=== PATIENT | female | born 2000 | race Two or more races ===

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

== ENCOUNTER 2020-02-02 12:42 | Emergency (ER) | payer MEDICAID ==
[2020-02-02 13:13] VITALS: BP 146/66
--- NOTE | 2020-02-02 14:35 | ER Document Report ---
ED General - General Chief Complaint: Insect Bite Stated Complaint: INSECT BITE Notes: Patient is a 19-year-old female with no significant past medical history presents the emergency department chief complaint of redness and swelling to the left lateral chest wall that began about 2 or 3 days ago. States she is unsure if it is from a spider bite. States area is red swollen and tender. Denies any drainage. No fevers chills or night sweats. TRAVEL OUTSIDE OF THE [place] IN LAST 30 DAYS: No - Related Data Allergies/Adverse Reactions: No Known Allergies Allergy (Verified 02/02/20 14:18) Past Medical History - Social History Smoking Status: Never Smoker Chew tobacco use (# tins/day): No Frequency of alcohol use: None Drug Abuse: None Family History: Reviewed & Not Pertinent Renal/ Medical History: Denies: Hx Peritoneal Dialysis - Immunizations Immunizations up to date: Yes Hx Diphtheria, Pertussis, Tetanus Vaccination: Yes Review of Systems - Review of Systems Constitutional: denies: Fever EENT: denies: Difficulty swallowing Cardiovascular: denies: Chest pain Respiratory: denies: Short of breath Gastrointestinal: denies: Abdominal pain Genitourinary: denies: Pain Female Genitourinary: denies: Vaginal discharge Musculoskeletal: denies: Joint pain Skin: Change in color Hematologic/Lymphatic: denies: Easy bleeding Neurological/Psychological: denies: Headaches Physical Exam - Vital signs Vitals: Temp Pulse Resp BP Pulse Ox 99.2 F 96 H 16 146/66 H 100 02/02/20 13:11 02/02/20 13:11 02/02/20 13:11 02/02/20 13:11 02/02/20 13:11 - General General appearance: Appears well, Alert In distress: None - Respiratory Respiratory status: No respiratory distress Chest status: Nontender Breath sounds: Normal Chest palpation: Normal - Cardiovascular Rhythm: Regular Heart sounds: Normal auscultation - Neurological Neuro grossly intact: Yes Cognition: Normal Orientation: AAOx4 - Psychological Associated symptoms: Normal affect, Normal mood - Skin Skin Color: Other - Erythematous area with induration to the left lateral chest wall approximately in the mid axillary line. There is centralized focalization with scabbing. No fluctuance appreciated. No expanding cellulitis or proximal streaking. Course - Re-evaluation Re-evalutation: 02/02/20 14:34 History and physical consistent with a cellulitis. Patient be placed on Bactrim. She denies any chance of . Discussed with her the importance of outpatient follow-up in 24 to 48 hours for reevaluation. Advised to return here any ER immediately with any new, persistent or worsening symptoms. She verbalized understood and agreed. - Vital Signs Vital signs: Temp Pulse Resp BP Pulse Ox 99.2 F 96 H 16 146/66 H 100 02/02/20 13:11 02/02/20 13:11 02/02/20 13:11 02/02/20 13:11 02/02/20 13:11 Discharge - Discharge Clinical Impression: Cellulitis Qualifiers: Site of cellulitis: other site Qualified Code(s): L03.818 - Cellulitis of other sites Condition: Stable Disposition: HOME, SELF-CARE Instructions: Cellulitis ([facility]) Additional Instructions: Follow-up with your regular doctor in 2 to 3 days for reevaluation. Return here or any ER immediately with any new, persistent or worsening symptoms. Prescriptions: Sulfamethoxazole/Trimethoprim [Bactrim Ds Tablet] 1 each PO BID #20 tablet
== END 2020-02-02 14:35 | disposition home or self-care (01) ==
LOC: ER 12:42
DX: L03.313 Cellulitis of chest wall (principal); R22.2 Localized swelling, mass and lump, trunk
CPT/HCPCS: 99281

== ENCOUNTER 2020-02-03 22:20 | Emergency (ER) | payer MEDICAID ==
[2020-02-03] MEDS ORDERED: OXYCODONE-ACETAMINOPHEN 5-325 MG TABLET PO ONE (22:36)
--- NOTE | 2020-02-03 22:37 | ER Document Report ---
ED Medical Screen (RME) - General Chief Complaint: Insect Bite Stated Complaint: POSSIBLE SPIDER BITE/NAUSEA Time Seen by Provider: 02/03/20 22:32 Mode of Arrival: Ambulatory Information source: Patient Notes: 19-year-old female presents to ED for complaint of a large abscess to the left lateral chest. She states she noticed it about 2 days ago. She states she does not know what she did she might of had an insect bite that she scratched she is not sure. She denies any allergies. It is extremely painful and it is painful to take a deep breath. I have medicated her with Percocet in the triage area. She said her last menstrual period was 24 January. I have greeted and performed a rapid initial assessment of this patient. A comprehensive ED assessment and evaluation of the patient, analysis of test results and completion of medical decision making process will be conducted by an additional ED providers. TRAVEL OUTSIDE OF THE [place] IN LAST 30 DAYS: No - Related Data Allergies/Adverse Reactions: No Known Allergies Allergy (Verified 02/02/20 14:18) Past Medical History Renal/ Medical History: Denies: Hx Peritoneal Dialysis - Immunizations Immunizations up to date: Yes Hx Diphtheria, Pertussis, Tetanus Vaccination: Yes Physical Exam - Vital signs Vitals: Temp Pulse Resp BP Pulse Ox 98.8 F 107 H 14 154/81 H 99 02/03/20 22:25 02/03/20 22:25 02/03/20 22:25 02/03/20 22:25 02/03/20 22:25 Course - Vital Signs Vital signs: Temp Pulse Resp BP Pulse Ox 98.8 F 107 H 14 154/81 H 99 02/03/20 22:25 02/03/20 22:25 02/03/20 22:25 02/03/20 22:25 02/03/20 22:25
[2020-02-04] MEDS ORDERED: LIDOCAINE 1%/EPINEPHRINE INJ 20 ML VIAL INJ ONE (01:13)
[2020-02-04 01:41] VITALS: BP 122/65
[2020-02-04] MEDS ORDERED: CEPHALEXIN 500 MG CAPSULE PO ONE (02:54)
[2020-02-04] MEDS ORDERED: SULFAMETHOXAZOLE/TRIMETHOPRIM 800-160 MG TABLET PO ONE (02:54)
--- NOTE | 2020-02-04 02:56 | ER Document Report ---
ED General - General Chief Complaint: Abscess Stated Complaint: POSSIBLE SPIDER BITE/NAUSEA Time Seen by Provider: 02/03/20 22:32 Mode of Arrival: Ambulatory TRAVEL OUTSIDE OF THE [place] IN LAST 30 DAYS: No - HPI Notes: 89-year-old female with no significant past medical history presents with area of redness and swelling on her left back gradually worsening over the past few days without associated symptoms, prior episodes, or any known precipitating factor. Patient denies any symptoms anywhere else on her body, HIV, diabetes, immunocompromise, prior abscesses, fever, vomiting, trauma - Related Data Allergies/Adverse Reactions: No Known Allergies Allergy (Verified 02/02/20 14:18) Past Medical History - General Information source: Patient - Social History Smoking Status: Never Smoker Family History: Reviewed & Not Pertinent Patient has homicidal ideation: No Renal/ Medical History: Denies: Hx Peritoneal Dialysis - Immunizations Immunizations up to date: Yes Hx Diphtheria, Pertussis, Tetanus Vaccination: Yes Review of Systems - Review of Systems Notes: REVIEW OF SYSTEMS: CONSTITUTIONAL : Denies fever, chills, or sweats. EENT: Denies recent cold/sinus symptoms, denies throat pain CARDIOVASCULAR: Denies chest pain, AWILDA RESPIRATORY: Denies cough, denies shortness of breath. GASTROINTESTINAL: Denies abdominal pain, nausea/vomiting. GENITOURINARY: Denies difficulty urinating, painful urination. FEMALE GENITOURINARY: Denies abnormal vaginal bleeding, vaginal discharge. MUSCULOSKELETAL: Denies neck pain, back pain. SKIN: + rash or skin lesions. HEMATOLOGIC : Denies easy bruising or bleeding. LYMPHATIC: Denies swollen, enlarged glands. NEUROLOGICAL: Denies headache, denies change in gait. PSYCHIATRIC: Denies anxiety or stress or depression. Physical Exam - Vital signs Vitals: Temp Pulse Resp BP Pulse Ox 98.8 F 107 H 14 154/81 H 99 02/03/20 22:25 02/03/20 22:25 02/03/20 22:25 02/03/20 22:25 02/03/20 22:25 - Notes Notes: PHYSICAL EXAMINATION: GENERAL: Well-appearing, well-nourished, young healthy-appearing adult female sitting up in stretcher with no visible signs of discomfort HEAD: Atraumatic, normocephalic. EYES: Pupils equal round and appropriate constriction, sclera anicteric, conjunctiva are normal. ENT: nares patent, moist mucous membranes. NECK: Normal range of motion, supple without lymphadenopathy LUNGS: Normal respiratory rate and effort, speaking in full sentences HEART: Regular rate, no JVD, no lower extremity edema ABDOMEN: Soft, nontender, no guarding, no masses, no CVAT EXTREMITIES: Normal range of motion, no pitting or edema. No cyanosis. NEUROLOGICAL: Awake, alert, conversing appropriately, moves all extremities spontaneously. PSYCH: Normal mood, normal affect. SKIN: Warm, Dry, normal turgor, approximately 5 x 8 cm area of redness induration and abnormal warmth on lateral upper left back with central area of fluctuance approximately 2 cm x 2 cm Course - Re-evaluation Re-evalutation: 02/04/20 02:57 Presentation consistent with abscess with surrounding cellulitis, patient has no systemic symptoms, initially mildly tachycardic likely secondary to exertion just prior to triage vitals being taken, resolved without any intervention at the time of my examination. Patient thought it might have been a spider bite but no evidence to suggest such and patient did not observe any spider. patient has no prior antibiotic use history no immunocompromise history and no risk factors for complicated course. Patient was I&D at bedside without complication which he tolerated well and given first dose of antibiotics with community- acquired MRSA coverage in ED. Patient given extensive return to ED precautions which she demonstrated understanding of. Patient ready for DC with PCP follow- up outpatient. - Vital Signs Vital signs: Temp Pulse Resp BP Pulse Ox 98.3 F 83 16 122/65 98 02/04/20 01:38 02/04/20 01:38 02/04/20 01:38 02/04/20 01:38 02/04/20 01:38 Procedures - Incision and Drainage Left Lateral Back Time completed: 02:50 - 02/04/2020 Type: Complex Anesthetic type: 1% Lidocaine w/epi mL's of anesthetic: 8 Blade size: 11 I&D procedure: Chlorprep applied Incision Method: Incision made by scalpel Amount/type of drainage: 10 ml Notes: 02/04/20 02:50 blunt dissection with breakup of loculations performed Adult Front & Back picture: 1 - abscess with cellulitis Discharge - Discharge Clinical Impression: Abscess Cellulitis Qualifiers: Site of cellulitis: trunk Site of cellulitis of trunk: back Qualified Code(s): L03.312 - Cellulitis of back [any part except buttock] Condition: Good Disposition: HOME, SELF-CARE Instructions: Cephalexin ([facility]), Trimethoprim-Sulfa ([facility]) Additional Instructions: Abscess You have an abscess (boil). This a pus-forming infection, usually due to staph. Some boils may be left to drain on their own, but most require lancing. From the time the tender lump first appears, it may be three or four days before the abscess is ready to jorge. Local heat and rest help at this stage of treatment. An antibiotic may prevent spread of the infection. The wound will heal with surprisingly little scar. Depending on the size and location of an abscess, healing can take one to four weeks. You may shower and wash the area around the incision site two or three times a day. If you develop fever, chilling, worsening pain, or increasing swelling in the area, call the doctor or return immediately. Cellulitis You have an infection of your skin and underlying soft tissues called cellulitis. This is due to bacteria, which can enter through any break in the skin, or even through an irritated hair follicle. Untreated, cellulitis will usually worsen. Antibiotics are required. Usually, warm packs or warm soaks, and elevation of the infected area are recommended. You should start getting better within 24 to 36 hours. Most infections respond quickly to the right medication. Follow-up care is important, however, to check for abscess (boil) formation, unsuspected foreign body, or resistant infection. If you develop fever, chills, or if the area of infection is becoming rapidly more swollen or painful, call the doctor at once. Follow-up with your primary doctor within 1 week. Return to the ED immediately if you have any worsening symptoms, fever of 100.4 or higher, vomiting, or any other worsening or alarming symptoms. Prescriptions: Sulfamethoxazole/Trimethoprim [Bactrim Ds Tablet] 1 each PO BID 5 Days #10 tablet Cephalexin Monohydrate [Keflex 500 mg Capsule] 500 mg PO Q6H 5 Days #20 capsule
== END 2020-02-04 03:45 | disposition home or self-care (01) ==
LOC: ER 22:20
PROC: 0H96XZZ Drainage of Back Skin, External Approach (ICD-10-PCS; principal; 2020-02-03)
DX: L02.212 Cutaneous abscess of back [any part, except buttock and flank] (principal); R21 Rash and other nonspecific skin eruption
CPT/HCPCS: 99283; 81025; 10060; J3490 ×2

== ENCOUNTER 2020-03-03 23:07 | Emergency (ER) | payer MEDICAID ==
[2020-03-04] MEDS ORDERED: KETOROLAC TROMETHAMINE INJ/PF 30 MG/1 ML SDV IV ONE (02:01)
[2020-03-04] MEDS ORDERED: ONDANSETRON HCL INJ/PF 4 MG/2 ML SDV IV ONE (02:01)
[2020-03-04] MEDS ORDERED: NORMAL SALINE 1000 ML 1,000 ML IV ONE (02:01)
--- NOTE | 2020-03-04 02:17 | ER Document Report ---
ED General - General Chief Complaint: Nausea/Vomiting Stated Complaint: HEADACHE/NAUSEA/UPSET STOMACH Time Seen by Provider: 03/04/20 01:33 TRAVEL OUTSIDE OF THE [place] IN LAST 30 DAYS: No - HPI Context: 19-year-old female presents with chief complaint of headache, nausea, crampy, diarrhea x 1 day. Pt states she ate [employer] pizza last night and started having symptoms shortly afterwards. Patient states she is also having nonlocalized, crampy abdominal pain. Patient states she thinks eating [employer] pizza is the reason she had the onset of symptoms. Patient took some Motrin at home without relief of symptoms. Patient denies fever, chills, shortness of breath, chest pain, dyspnea, loss of sense of taste or loss of sense of smell. Patient denies recent sick contacts. Patient denies possible contacts with patients under suspicion or positive for COVID. Patient states her last menstrual period was a little over 2 weeks ago and denies . Associated symptoms: Nausea Exacerbated by: Other - See HPI Relieved by: Other - Nothing Recently seen / treated by doctor: No - Related Data Allergies/Adverse Reactions: No Known Allergies Allergy (Verified 02/02/20 14:18) Past Medical History - General Information source: Patient - Social History Smoking Status: Never Smoker Chew tobacco use (# tins/day): No Frequency of alcohol use: None Drug Abuse: None Family History: Reviewed & Not Pertinent Renal/ Medical History: Denies: Hx Peritoneal Dialysis - Immunizations Immunizations up to date: Yes Hx Diphtheria, Pertussis, Tetanus Vaccination: Yes Review of Systems - Review of Systems Constitutional: No symptoms reported EENT: No symptoms reported Cardiovascular: No symptoms reported Respiratory: No symptoms reported Gastrointestinal: Abdominal pain, Diarrhea, Nausea. denies: Vomiting Genitourinary: No symptoms reported Female Genitourinary: No symptoms reported Musculoskeletal: No symptoms reported Skin: No symptoms reported Hematologic/Lymphatic: No symptoms reported Neurological/Psychological: Other - Headache -: Yes All other systems reviewed and negative Physical Exam - Vital signs Vitals: Temp Pulse Resp BP Pulse Ox 98.5 F 80 18 136/77 H 100 03/03/20 23:15 03/03/20 23:15 03/03/20 23:15 03/03/20 23:15 03/03/20 23:15 - Notes Notes: CONSTITUTIONAL [Vital signs reviewed, Patient appears comfortable, Alert and oriented X 3, Normal stature.] HEAD [Atraumatic, Normocephalic.] EYES [Eyes are normal to inspection, No discharge from eyes, Extraocular muscles intact, Sclera are normal, Conjunctiva are normal.] NECK [Normal ROM, No jugular venous distention, No meningeal signs, no carotid bruit.] RESPIRATORY CHEST [Chest is nontender, Breath sounds normal, No respiratory distress.] CARDIOVASCULAR [RRR, No murmurs, Normal S1 S2, No rub, No gallop.] ABDOMEN [Abdomen is nontender, No pulsatile masses, No other masses, Bowel sounds normal, No distension, No peritoneal signs, No hernias.] BACK [There is no CVA Tenderness, There is no tenderness to palpation, Normal inspection.] UPPER EXTREMITY [Inspection normal, No cyanosis, No clubbing, No edema, 2+ radial pulses.] LOWER EXTREMITY [Inspection normal, No cyanosis, No clubbing, No edema, No calf tenderness, 2+ femoral pulses.] NEURO [No focal motor deficits, No focal sensory deficits, Speech normal.] SKIN [Skin is warm, Skin is dry, Skin is normal color.] LYMPHATIC [No adenopathy in neck.] PSYCHIATRIC [Normal affect. ] Course - Re-evaluation Re-evalutation: 03/04/20 03:48 Patient states she is feeling better at this time. Results of ED MSE discussed with patient. All questions were answered prior to discharge. Emergency signs and symptoms, reasons to return to the emergency department discussed with hermelindo saeed. - Vital Signs Vital signs: Temp Pulse Resp BP Pulse Ox 98.5 F 80 18 136/77 H 100 03/03/20 23:15 03/03/20 23:15 03/03/20 23:15 03/03/20 23:15 03/03/20 23:15 - Laboratory Result Diagrams: 03/04/20 02:31 03/04/20 02:31 Laboratory results interpreted by me: 03/04/20 02:31 RDW 14.6 H Discharge - Discharge Clinical Impression: Acute gastroenteritis Condition: Stable Disposition: HOME, SELF-CARE Instructions: Antinausea Medication ([facility]), Gastroenteritis (adult) ([facility]) Additional Instructions: Return to the Emergency Department without delay if any worse. HOME CARE INSTRUCTIONS & INFORMATION: Thank you for choosing us for your medical needs. We hope you're satisfied with the care you received. After you leave, you must properly care for your problem and, at the same time, observe its progress. Any condition can change. Some illnesses can change rapidly over hours or days. If your condition worsens, return to the Emergency Department or see your physician promptly. ABOUT YOUR X-RAYS AND EKG'S: If you had an EKG or X-rays taken, they have been read by the Emergency Physician. The X-rays and EKG's will also be read by a Radiologist or Emergency Medicine within 24 hours. If discrepancies are noted, you will be notified by telephone. Please be certain the ED has a correct telephone number & address where you can be reached. Also, realize that some fractures or abnormalities do not show up on initial X-rays. If your symptoms continue, see your physician. ABOUT YOUR LABORATORY TEST: If you had laboratory tests, the results have been reviewed by the Emergency Physician. Some test results (for example cultures) may not be available for several days. You will be contacted if any test result shows you need additional treatment. Please be certain the ED has a correct telephone number and address where you can be reached. ABOUT YOUR MEDICATIONS: You will receive instructions on how to take your medicine on the prescription label you receive. Additional information may be provided by the Pharmacy. If you have questions afterwards, call the ED for clarification or further instructions. Some prescribed medications may cause drowsiness. Do not perform tasks such as driving a car or operating machinery without consulting your Pharmacist. If you feel you need a refill of pain medication, your condition will need re-evaluation. Please do not call for a refill of any medication. ABOUT YOUR SIGNATURE: Signature of this document acknowledges to followin. Understanding that you received emergency treatment and that you may be re leased before al medical problems are known or treated. Please be certain the ED has a correct phone number & address where you can be reached. 2. Acknowledgement that you will arrange for follow-up care as recommended. 3. Authorization for the Emergency Physician to provide information to your follow-up Physician in order to maximize your care. AT ANY TIME, IF YOUR SYMPTOMS CHANGE SIGNIFICANTLY OR WORSEN OR YOU DEVELOP NEW SYMPTOMS, RETURN TO THE EMERGENCY DEPARTMENT IMMEDIATELY FOR RE-EVALUATION. OUR GOAL IS TO PROVIDE EXCELLENT MEDICAL CARE! WE HOPE THAT WE HAVE MET YOUR EXPECTATIONS DURING YOUR EMERGENCY DEPARTMENT VISIT AND THAT YOU FEEL YOU HAVE RECEIVED EXCELLENT CARE! Referrals: FAYE HURST MD [HONORARY] - Follow up as needed
[2020-03-04 03:22] LABS: ABSOLUTE EOSINOPHILS # (AUTO) 0.1 10^3/uL (0.0-0.6); BASOPHILS % (AUTO) 0.4 % (0-2); EOSINOPHILS % (AUTO) 1.2 % (0-6); LYMPHOCYTES % (AUTO) 31.3 % (13-45); RED BLOOD COUNT 4.13 10^6/uL (3.72-5.28); TOTAL CELLS COUNTED % (AUTO) 100 %
[2020-03-04 03:26] LABS: ABSOLUTE LYMPHOCYTES (AUTO) 1.9 10^3/uL (0.5-4.7); ABSOLUTE MONOCYTES (AUTO) 0.5 10^3/uL (0.1-1.4); ABSOLUTE NEUT (AUTO) 3.6 10^3/uL (1.7-8.2); HEMATOCRIT 36.9 % (36.0-47.0); HEMOGLOBIN 12.2 g/dL (12.0-15.5); MEAN CORPUSCULAR HEMOGLOBIN 29.5 pg (27.0-33.4); MEAN CORPUSCULAR HGB CONC 32.9 g/dL (32.0-36.0); MEAN CORPUSCULAR VOLUME 90 fl (80-97); MONOCYTES % (AUTO) 8.8 % (3-13); PLATELET COUNT 271 10^3/uL (150-450); RED CELL DISTRIBUTION WIDTH 14.6 % (11.5-14.0); SEGMENTED NEUTROPHILS % (AUTO) 58.3 % (42-78); WHITE BLOOD COUNT 6.1 10^3/uL (4.0-10.5)
[2020-03-04 03:28] LABS: ALBUMIN 4.3 g/dL (3.7-5.6); ALKALINE PHOSPHATASE 70 U/L (50-135); ANION GAP 10 (5-19); ASPARTATE AMINO TRANSFERASE 25 U/L (5-30); BILIRUBIN,DIRECT 0.4 mg/dL (0.0-0.4); BILIRUBIN,TOTAL 0.7 mg/dL (0.2-1.3); BLOOD UREA NITROGEN 15 mg/dL (7-20); CALCIUM 9.3 mg/dL (8.4-10.2); CARBON DIOXIDE 26 mmol/L (22-30); CHLORIDE 105 mmol/L (98-107); GLUCOSE 93 mg/dL (75-110); POTASSIUM 4.5 mmol/L (3.6-5.0); TOTAL PROTEIN 7.3 g/dL (6.3-8.2)
[2020-03-04] MEDS ORDERED: ONDANSETRON ODT 4 MG TAB (6 TAB/ER DISP) PO PRN (03:50)
[2020-03-04 04:07] VITALS: BP 136/68
== END 2020-03-04 04:06 | disposition home or self-care (01) ==
LOC: ER 23:07
DX: K52.89 Other specified noninfective gastroenteritis and colitis (principal); R11.2 Nausea with vomiting, unspecified; R10.9 Unspecified abdominal pain; R19.7 Diarrhea, unspecified
CPT/HCPCS: 99284; 96361; 96374; 96375; 36415; 84703; 85025; 80053; J1885; J2405; J7030